=== PATIENT | male | born 1975 | race Caucasian/White ===

== ENCOUNTER 2019-12-14 18:23 | Emergency (ER) | payer MEDICAID ==
[~2019-12-14] VITALS: Ht 182.9 cm; Wt 90.9 kg
[2019-12-14 19:59] LABS: BASOPHILS # (AUTO) 0.1 X10'3 (0-0.2); EOSINOPHILS # (AUTO) 0.4 X10'3 (0-0.9); EOSINOPHILS % (AUTO) 4.7 % (0-6); HEMATOCRIT 34.3 % (42.0-52.0); HEMOGLOBIN 11.8 g/dl (14.0-17.9); LYMPHOCYTES # (AUTO) 2.2 X10'3 (1.1-4.8); LYMPHOCYTES % (AUTO) 23.2 % (21-51); MEAN CORPUSCULAR HEMOGLOBIN 30.7 PG (27.0-31.0); MEAN CORPUSCULAR HGB CONC 34.3 g/dL (33.0-36.5); MEAN CORPUSCULAR VOLUME 89.4 FL (78-98); MEAN PLATELET VOLUME 8.9 FL (7.4-10.4); MONOCYTES # (AUTO) 1.1 X10'3 (0-0.9); MONOCYTES % (AUTO) 11.5 % (2-12); NEUTROPHILS # (AUTO) 5.6 X10'3 (1.8-7.7); NEUTROPHILS % (AUTO) 59.6 % (42-75); PLATELET COUNT 435 X10'3 (140-440); RED BLOOD COUNT 3.84 X10'6 (4.70-6.10); WHITE BLOOD COUNT 9.5 X10'3 (4.5-11.0)
[2019-12-14 20:13] LABS: D-DIMER 1.16 MG/L FEU (0-0.50)
[2019-12-14 20:25] LABS: ALANINE AMINOTRANSFERASE 372 U/L (12-78); ALBUMIN 3.2 G/DL (3.4-5.0); ALBUMIN/GLOBULIN RATIO 0.8 (1.1-1.5); ALKALINE PHOSPHATASE 127 IU/L (46-116); ANION GAP 9 (8-16); ASPARTATE AMINO TRANSFERASE 123 U/L (10-37); BILIRUBIN,TOTAL 0.2 MG/DL (0.1-1.0); BLOOD UREA NITROGEN 30 MG/DL (7-18); BUN/CREATININE RATIO 33.3 (5.4-32.0); CALCIUM 8.8 MG/DL (8.5-10.1); CHLORIDE 106 MMOL/L (99-107); GLUCOSE 121 MG/DL (70-104); SODIUM 142 MMOL/L (135-145); TOTAL CARBON DIOXIDE 27.3 MMOL/L (24-32); TOTAL PROTEIN 7.2 G/DL (6.4-8.2); eGFR > 90 ML/MIN
[2019-12-14] MEDS ORDERED: iohexol 350MG/ML 100ml bottle IV ONE (20:28)
[2019-12-14 21:50] VITALS: BP 121/82
== END 2019-12-14 21:55 | disposition home or self-care (01) ==
LOC: ER 18:23
DX: I82.4Z1 Acute embolism and thrombosis of unspecified deep veins of right distal lower extremity (principal); L03.115 Cellulitis of right lower limb; R06.02 Shortness of breath; E78.00 Pure hypercholesterolemia, unspecified; K21.9 Gastro-esophageal reflux disease without esophagitis; E11.9 Type 2 diabetes mellitus without complications; F12.90 Cannabis use, unspecified, uncomplicated; F15.90 Other stimulant use, unspecified, uncomplicated; F11.90 Opioid use, unspecified, uncomplicated; Z59.0 Homelessness; Z56.0 Unemployment, unspecified; Z88.1 Allergy status to other antibiotic agents
CPT/HCPCS: 36415; 71045; 71275; 80053; 83605; 84484; 85025; 85379; 87040; 93005; 99285; Q9967

== ENCOUNTER 2019-12-25 09:45 | Day surgery (SDC) | payer MEDICAID ==
[2019-12-25] MEDS ORDERED: LIDOcaine 2% 5ml jelly ONE (10:45)
== END 2019-12-25 11:20 | disposition home or self-care (01) ==
LOC: WOUND CARE 09:45
PROVIDERS: ATTEND Surgery
DX: T81.89XA Other complications of procedures, not elsewhere classified, initial encounter (principal); L97.212 Non-pressure chronic ulcer of right calf with fat layer exposed; I80.01 Phlebitis and thrombophlebitis of superficial vessels of right lower extremity; K21.9 Gastro-esophageal reflux disease without esophagitis; E78.00 Pure hypercholesterolemia, unspecified; F17.200 Nicotine dependence, unspecified, uncomplicated; F12.90 Cannabis use, unspecified, uncomplicated; F11.90 Opioid use, unspecified, uncomplicated; F15.90 Other stimulant use, unspecified, uncomplicated; Y83.8 Other surgical procedures as the cause of abnormal reaction of the patient, or of later complication, without mention of misadventure at the time of the procedure; Y92.89 Other specified places as the place of occurrence of the external cause
CPT/HCPCS: 97597

== ENCOUNTER 2019-12-29 09:29 | Day surgery (SDC) | payer MEDICAID ==
[2019-12-29] MEDS ORDERED: LIDOcaine 2% 5ml jelly ONE ×2 (09:59→10:38)
== END 2019-12-29 11:06 | disposition home or self-care (01) ==
LOC: WOUND CARE 09:29
PROVIDERS: ATTEND Surgery
DX: T81.89XD Other complications of procedures, not elsewhere classified, subsequent encounter (principal); L97.212 Non-pressure chronic ulcer of right calf with fat layer exposed; I80.01 Phlebitis and thrombophlebitis of superficial vessels of right lower extremity; K21.9 Gastro-esophageal reflux disease without esophagitis; E78.00 Pure hypercholesterolemia, unspecified; F17.200 Nicotine dependence, unspecified, uncomplicated; F12.90 Cannabis use, unspecified, uncomplicated; F11.90 Opioid use, unspecified, uncomplicated; F15.90 Other stimulant use, unspecified, uncomplicated; Y83.8 Other surgical procedures as the cause of abnormal reaction of the patient, or of later complication, without mention of misadventure at the time of the procedure
CPT/HCPCS: 10140; A6021; A6154; A6212

== ENCOUNTER 2020-01-09 08:50 | Day surgery (SDC) | payer MEDICAID ==
[2020-01-09] MEDS ORDERED: LIDOcaine/PRILOcaine 5gm cream TP ONE (09:12)
== END 2020-01-09 10:10 | disposition home or self-care (01) ==
LOC: WOUND CARE 08:50
PROVIDERS: ATTEND Surgery
DX: T81.89XD Other complications of procedures, not elsewhere classified, subsequent encounter (principal); L97.212 Non-pressure chronic ulcer of right calf with fat layer exposed; I80.01 Phlebitis and thrombophlebitis of superficial vessels of right lower extremity; K21.9 Gastro-esophageal reflux disease without esophagitis; E78.00 Pure hypercholesterolemia, unspecified; F17.200 Nicotine dependence, unspecified, uncomplicated; F12.90 Cannabis use, unspecified, uncomplicated; F11.90 Opioid use, unspecified, uncomplicated; F15.90 Other stimulant use, unspecified, uncomplicated; Y83.8 Other surgical procedures as the cause of abnormal reaction of the patient, or of later complication, without mention of misadventure at the time of the procedure
CPT/HCPCS: 87070; 87075; 87077; 87102; 87186; 97597; A4663; A6021; A6154; A6212

== ENCOUNTER 2020-01-20 11:00 | Day surgery (SDC) | payer MEDICAID ==
[~2020-01-20 11:00] MED LIST: LIDOcaine/PRILOcaine 5gm cream TP ONE
[2020-01-20] MEDS ORDERED: LIDOcaine 2% 5ml jelly ONE (11:21)
== END 2020-01-20 12:04 | disposition home or self-care (01) ==
LOC: WOUND CARE 11:00
PROVIDERS: ATTEND Nurse Practitioner Family
DX: T81.89XD Other complications of procedures, not elsewhere classified, subsequent encounter (principal); L97.212 Non-pressure chronic ulcer of right calf with fat layer exposed; I80.01 Phlebitis and thrombophlebitis of superficial vessels of right lower extremity; K21.9 Gastro-esophageal reflux disease without esophagitis; E78.00 Pure hypercholesterolemia, unspecified; F17.200 Nicotine dependence, unspecified, uncomplicated; F12.90 Cannabis use, unspecified, uncomplicated; F11.90 Opioid use, unspecified, uncomplicated; F15.90 Other stimulant use, unspecified, uncomplicated; Y83.8 Other surgical procedures as the cause of abnormal reaction of the patient, or of later complication, without mention of misadventure at the time of the procedure
CPT/HCPCS: 97597

== ENCOUNTER 2020-01-27 11:10 | Day surgery (SDC) | payer MEDICAID ==
[2020-01-27] MEDS ORDERED: LIDOcaine 2% 5ml jelly ONE (11:48)
[2020-01-27] MEDS ORDERED: Silvasorb gel 45gm tube TP ONE (12:23)
== END 2020-01-27 12:28 | disposition home or self-care (01) ==
LOC: WOUND CARE 11:10
PROVIDERS: ATTEND Surgery
DX: T81.89XD Other complications of procedures, not elsewhere classified, subsequent encounter (principal); L97.212 Non-pressure chronic ulcer of right calf with fat layer exposed; I80.01 Phlebitis and thrombophlebitis of superficial vessels of right lower extremity; K21.9 Gastro-esophageal reflux disease without esophagitis; E78.00 Pure hypercholesterolemia, unspecified; F17.200 Nicotine dependence, unspecified, uncomplicated; F12.90 Cannabis use, unspecified, uncomplicated; F11.90 Opioid use, unspecified, uncomplicated; F15.90 Other stimulant use, unspecified, uncomplicated; Y83.8 Other surgical procedures as the cause of abnormal reaction of the patient, or of later complication, without mention of misadventure at the time of the procedure
CPT/HCPCS: 11042

== ENCOUNTER 2020-02-12 03:11 | Emergency (ER) | payer MEDICAID ==
[~2020-02-12] VITALS: Ht 182.9 cm; Wt 86.3 kg
--- NOTE | 2020-02-12 03:20 | NUR ---
Spoke to [facility] of poison control who states that there is limited data regarding the substance he was huffing and that treatment will be symptomatic. Dr. Villareal notified.
[2020-02-12] MEDS ORDERED: normal saline 1000ML IV soln IVB ONE (03:40)
[2020-02-12] MEDS ORDERED: ondansetron/PF 4mg/2ml inj IV ONE (03:50)
[2020-02-12 03:59] LABS: BASOPHILS # (AUTO) 0.1 X10'3 (0-0.2); BASOPHILS % (AUTO) 0.8 % (0-1); EOSINOPHILS # (AUTO) 0.2 X10'3 (0-0.9); EOSINOPHILS % (AUTO) 1.8 % (0-6); HEMATOCRIT 38.9 % (42.0-52.0); HEMOGLOBIN 12.8 g/dl (14.0-17.9); LYMPHOCYTES # (AUTO) 1.5 X10'3 (1.1-4.8); LYMPHOCYTES % (AUTO) 12.6 % (21-51); MEAN CORPUSCULAR HEMOGLOBIN 28.3 PG (27.0-31.0); MEAN CORPUSCULAR VOLUME 85.7 FL (78-98); MEAN PLATELET VOLUME 9.1 FL (7.4-10.4); MONOCYTES # (AUTO) 1.1 X10'3 (0-0.9); MONOCYTES % (AUTO) 9.6 % (2-12); NEUTROPHILS # (AUTO) 8.9 X10'3 (1.8-7.7); NEUTROPHILS % (AUTO) 75.2 % (42-75); PLATELET COUNT 301 X10'3 (140-440); RED BLOOD COUNT 4.54 X10'6 (4.70-6.10); RED CELL DISTRIBUTION WIDTH 13.9 % (11.5-14.5); WHITE BLOOD COUNT 11.8 X10'3 (4.5-11.0)
[2020-02-12 04:11] LABS: ALANINE AMINOTRANSFERASE 28 U/L (12-78); ALBUMIN 3.6 G/DL (3.4-5.0); ALBUMIN/GLOBULIN RATIO 1.1 (1.1-1.5); ALKALINE PHOSPHATASE 55 IU/L (46-116); ANION GAP 8 (8-16); ASPARTATE AMINO TRANSFERASE 16 U/L (10-37); BILIRUBIN,TOTAL 0.2 MG/DL (0.1-1.0); BLOOD UREA NITROGEN 21 MG/DL (7-18); BUN/CREATININE RATIO 19.3 (5.4-32.0); CALCIUM 8.5 MG/DL (8.5-10.1); CHLORIDE 106 MMOL/L (99-107); CREATININE 1.09 MG/DL (0.60-1.10); ETHANOL < 0.010 GM/DL (0.0-0.010); GLUCOSE 100 MG/DL (70-104); SODIUM 141 MMOL/L (135-145); TOTAL CARBON DIOXIDE 26.9 MMOL/L (24-32); TOTAL PROTEIN 6.8 G/DL (6.4-8.2); eGFR 73 ML/MIN
--- NOTE | 2020-02-12 04:27 | NUR ---
Second attempt to collect urine from patient. Patient refuses to attempt to urinate because, "I don't have to go. We're wasting both our time." Patient educated that his kidneys have produced plenty of urine in the time that he is been here but will not try. Patient initially declines straight catheter. After speaking with Dr. Villareal patient agrees that if he cannot void in 20 minutes he will allow for a straight cath urine sample.
--- NOTE | 2020-02-12 04:50 | NUR ---
spoke with Dr. Villareal patient refusing to be straight cathed for UA, Dr. Villareal stated that is ok wait longer and re-check, if patient can use urinal
--- NOTE | 2020-02-12 05:44 | NUR ---
Patient ambulates with steady gait to restroom and back to his room.
[2020-02-12 06:03] LABS: URINE AMPHETAMINE SCREEN POSITIVE (Neg); URINE BARBITUATE SCREEN NEGATIVE (Neg); URINE BENZODIAZEPINES SCREEN NEGATIVE (Neg); URINE CANNABINOID SCREEN POSITIVE (Neg); URINE COCAINE SCREEN NEGATIVE (Neg); URINE METHADONE SCREEN NEGATIVE (Neg); URINE OPIATE SCREEN NEGATIVE (Neg); URINE PHENCYCLIDINE SCREEN NEGATIVE (Neg)
[2020-02-12 06:45] VITALS: BP 100/60
== END 2020-02-12 07:57 | disposition home or self-care (01) ==
LOC: ER 03:12
DX: F19.10 Other psychoactive substance abuse, uncomplicated (principal); R41.82 Altered mental status, unspecified; R11.2 Nausea with vomiting, unspecified; R20.0 Anesthesia of skin; E78.00 Pure hypercholesterolemia, unspecified; K21.9 Gastro-esophageal reflux disease without esophagitis; E11.9 Type 2 diabetes mellitus without complications; F41.9 Anxiety disorder, unspecified; F12.90 Cannabis use, unspecified, uncomplicated; F15.90 Other stimulant use, unspecified, uncomplicated; F11.90 Opioid use, unspecified, uncomplicated; Z86.718 Personal history of other venous thrombosis and embolism; Z86.69 Personal history of other diseases of the nervous system and sense organs; Z72.89 Other problems related to lifestyle; Z59.0 Homelessness; Z56.0 Unemployment, unspecified; Z60.2 Problems related to living alone; Z88.1 Allergy status to other antibiotic agents
CPT/HCPCS: 36415; 71045; 80053; 80305; 80320; 85025; 85610; 93005; 96361; 96374; 99285; J2405; J7030

== ENCOUNTER 2020-06-18 09:06 | Emergency (ER) | payer MEDICAID ==
[~2020-06-18] VITALS: Ht 182.9 cm; Wt 94.1 kg
[2020-06-18 09:19] VITALS: BP 126/87
[2020-06-18] MEDS ORDERED: HYDR-4383 PO (11:52)
--- NOTE | 2020-06-18 12:02 | NUR ---
Patient given jona wrap to left knee.
== END 2020-06-18 12:03 | disposition home or self-care (01) ==
LOC: ER 09:06
DX: M25.562 Pain in left knee (principal); M25.511 Pain in right shoulder; E78.00 Pure hypercholesterolemia, unspecified; K21.9 Gastro-esophageal reflux disease without esophagitis; E11.9 Type 2 diabetes mellitus without complications; Z86.718 Personal history of other venous thrombosis and embolism; F41.9 Anxiety disorder, unspecified; F12.90 Cannabis use, unspecified, uncomplicated; F15.90 Other stimulant use, unspecified, uncomplicated; F11.90 Opioid use, unspecified, uncomplicated; Z60.2 Problems related to living alone; Z59.0 Homelessness; Z56.0 Unemployment, unspecified; Z79.2 Long term (current) use of antibiotics
CPT/HCPCS: 73020; 73564; 99284